=== PATIENT | female | born 1935 | race Caucasian/White ===

== ENCOUNTER 2018-12-07 22:55 | Inpatient (IN) | payer OTHER, BC ==
[~2018-12-07] VITALS: Ht 157.5 cm; Wt 56.8 kg
--- NOTE | 2018-12-07 22:55 | NUR ---
PT BIBA FOR PTS DYALISIS PORT WAS BLEEDING. PT HAS A PORT THAT IS LOCATED ON PTS RIGHT SIDE OF NECK THAT BEGAN TO BLEED EARLIER THIS EVENING. PT CANNOT RECOLLECT WHAT HAPPENED OR WHY THE PORT BEGAN TO BLEED. PER [facility] MANAGER STONE ON SCENE PT WAS FOUND IN HER BEDROOM CONFUSED AND NOT FULLY DRESSED. PER MEDIC THERE WAS APPROX 200CC OF BLOOD ON PTS BED WELL AN ADDITIONAL BLOOD FOUND IN PTS BATHROOM AND BATHTUB. PER MEDIC THEY APPROXIMATE THE TOTAL LOSS OF BLOOD WAS AROUND 500CC. PT WAS ALERT AND RESPONSIVE WHEN PARAMEDICS WERE AT HER HOME. PER MEDIC GCS WAS AT A 14. PER MANAGER STONE WHILE EN ROUTE TO ER THE PT BECAME UNRESPONSIVE WITH A GCS OF 3. PT WAS PLACED ON OXYGEN WITH HIGH FLOW. PER MEDIC PT WOULD NOT RESPOND TO VERBAL OR PAINFUL STIMULI. DR MACEDO NOW AT BEDSIDE
[2018-12-07 22:57] VITALS: Ht 157.5 cm; Wt 56.8 kg
--- NOTE | 2018-12-07 23:00 | NUR ---
DR MACEDO AT BEDSIDE AND SPEAKING WITH PT. PT IS ABLE TO ANSWER QUESTIONS APPROPRIATELY. PT STS " I DONT REMEMBER" WHEN ASKED WHAT HAPPENED TONIGHT. PT PT PLACED ON CM. PER PT LAST DIALYSIS TREATMENT WAS EARLIER THIS AFTERNOON
--- NOTE | 2018-12-07 23:14 | NUR ---
GIOVANNA RN AT BEDSIDE TO CLEAN PT. PT IS SPEAKING IN FULL SENTENCES WITH SPEACH CLEAR. PT IS ABLE TO FOLLOW COMMANDS. PT DENIES ANY PAIN AT THIS TIME.
[2018-12-07 23:22] LABS: BASOPHIL % 0.6 % (0-2); PLATELET COUNT 162 x10^3mcL (130-400)
[2018-12-07 23:23] LABS: RED CELL DISTRIBUTION WIDTH 17.6 % (11.5-14.5)
--- NOTE | 2018-12-07 23:46 | NUR ---
PT AT BEDSIDE AT THIS TIME, PT STATES THAT PT HAD GONE TO BED THIS EVENING AND HE WAS UP WATCHING TV WHEN SHE CALLED HIM INTO THE BATHROOM TO HELP HER. PT STATES "SHE PULLED THE DRESSING OFF AND PULLED THE TUBE OUT, I DON'T KNOW WHY SHE DID THAT". PT CALLED 911 SHORTLY AFTER. PT ABLE TO RECALL ALL EVENTS OF THE EVENING EXCEPT FOR WHY SHE WAS BLEEDING FROM HER PORT.
[2018-12-07 23:47] LABS: ALKALINE PHOSPHATASE 91 U/L (46-116); ALT/SGPT 12 U/L (14-59); AST/SGOT 13 U/L (15-37); BILIRUBIN TOTAL 0.3 mg/dL (0.20-1.00); CALCIUM 8.7 mg/dL (8.5-10.1); CHLORIDE SERUM 104 mmol/L (98-107); CREATININE SERUM 3.7 mg/dL (0.6-1.0); GLUCOSE SERUM 149 mg/dL (74-106); SODIUM SERUM 140 mmol/L (136-145)
[2018-12-07 23:50] LABS: ALBUMIN 2.6 g/dL (3.4-5.0); TOTAL PROTEIN, SERUM 5.5 g/dL (6.4-8.2)
[2018-12-07 23:51] LABS: POTASSIUM SERUM 2.5 mmol/L (3.5-5.1)
--- NOTE | 2018-12-08 00:01 | NUR ---
PT CALLED ME INTO THE ROOM TO TELL ME THAT HER IV HAD BEEN PULLED OUT. IV TO R HAND REVOVED AT THIS TIME BLEEDING CONTROLLED.
--- NOTE | 2018-12-08 00:18 | NUR ---
PT REPORT CALLED TO PATRICIA RETANA TO ASSUME PT CARE.
--- NOTE | 2018-12-08 00:56 | NUR ---
PT TRANSFERRED TO 251B BY RUTHY BY PIERRE CARBAJAL AND LIBORIO RN. PT ON FULL CM FOR TRANSFER. PT AOX4, RESP EVEN AND UNLABORED, NO ACUTE DISTRESS NOTED. PT ACCEPTED BY PATRICIA RETANA TO ASSUME PT CARE.
--- NOTE | 2018-12-08 00:59 | NUR ---
PT WAS RECEIVED BY PRIMARY NURSE ERNESTO FROM ED. PT IS AAOX2, ABLE TO FOLLOW SIMPLE COMMANDS. SPEECH IS CLEAR. NO SOB NOTED, LUNG SOUNDS DIMINISHED ON THE BASES. DENIES CHEST PAIN/PRESSURE. DENIES ABDOMINAL DISCOMFORT. BOWEL SOUNDS ACTIVE. NOTED ERYTHEMA AND SUTURED AREA ON THE LUE, COVERED W/ NON-ADHERENT DRESSING AND TEGADERM. W/ RIGHT HAND ECCHYMOSIS, PC TECH. W/ RIGHT UPPER CHEST PORT CLAMPED W/ A RENE CLAMP, MIREYA-WOUND IS CLEANSED W/ A BETADINE AND COVERED W/ TRANSPARENT DRESSING. OLD IV SITE ON THE LFA REMOVED, NEW IV INSERTED ON THE RIGHT HAND GAUGE 22. SIDE RAILS UPX2. CALL LIGHT ON REACH. HOB ELEVATED AT 30 DEG. PRIMARY NURSE ERNESTO AT BEDSIDE FOR CONTINUITY OF CARE
--- NOTE | 2018-12-08 01:00 | NUR ---
RECIEVED PT FROM MAZIN AGOSTO. PT AOX2, CONFUSED/FORGETFUL AT TIMES. ON TELE #6, NSR. DENIES CP/PRESSURE. DENIES SOB/DIFFICULTY BREATHING, ON 2L NC. SHUNT NOTED TO LAC, BRUIT AND THRILL FELT. R. CHEST CATH CUT/CLAMPED. NEW IV TO R. HAND, INTACT AND PATENT. BED IN LOWEST POSITION. CALL LIGHT WITHIN REACH. WILL CONTINUE TO MONITOR.
[2018-12-08 01:23] VITALS: BP 121/90
[2018-12-08 02:16] LABS: MAGNESIUM 1.8 mg/dL (1.8-2.4); PHOSPHOROUS 5.5 mg/dL (2.5-4.9)
[2018-12-08 02:17] LABS: CHOLESTEROL/HDL RATIO 2.9
[2018-12-08 02:25] LABS: T3 TOTAL 0.64 ng/mL
[2018-12-08 02:27] LABS: FREE T4 0.6 ng/dL (0.76-1.46)
[2018-12-08 02:31] LABS: FREE THYROXINE INDEX 1.4 ug/dL (1.4-4.5)
[2018-12-08 05:20] VITALS: BP 123/26
[2018-12-08 05:20] LABS: BASOPHIL % 0.2 % (0-2); PLATELET COUNT 159 x10^3mcL (130-400)
[2018-12-08 05:24] LABS: RED CELL DISTRIBUTION WIDTH 16.9 % (11.5-14.5)
[2018-12-08 05:28] LABS: CALCIUM 9.5 mg/dL (8.5-10.1); CARBON DIOXIDE 21.5 mmol/L (21-32); CHLORIDE SERUM 105 mmol/L (98-107); GLUCOSE SERUM 115 mg/dL (74-106); MAGNESIUM 2.1 mg/dL (1.8-2.4); PHOSPHOROUS 6.6 mg/dL (2.5-4.9); POTASSIUM SERUM 4.1 mmol/L (3.5-5.1); SODIUM SERUM 140 mmol/L (136-145)
--- NOTE | 2018-12-08 05:30 | NUR ---
PT WBC 13.8, H/H 8.4. DR. SAMUEL NOTIFIED.
[2018-12-08 05:32] LABS: CREATININE SERUM 4.2 mg/dL (0.6-1.0)
--- NOTE | 2018-12-08 05:37 | NUR ---
CREAT 4.2, DR. SAMUEL NOTIFIED.
--- NOTE | 2018-12-08 05:42 | NUR ---
IV TO R. HAND LEAKING, REMOVED WITH TIP INTACT. NEW IV PLACED TO RFA, INTACT AND PATENT.
[2018-12-08 05:57] VITALS: BP 129/67
--- NOTE | 2018-12-08 07:45 | NUR ---
RECEIVED ORDER TO OBTAIN CONSENT FOR PERMACATH INSERTION. PATIENT SLEEPING BUT ARROUSABLE, ALERT AND ORIENTED TO SELF. (PLACE-"[facility]", YEAR-"1988", SITUATION-"I DONT KNOW WHAT HAPPENED TO ME") REORIENTING NEEDED. CALLED AND VOICE MESSAGE LEFT. PATIENT DENIES DIZZINESS OR HEADACHE. EQUAL CARE TRANSITION MGR STRENGTH, PERRLA NOTED, SPEECH CLEAR. DENIES CHEST PAIN. TELE 6, READING SR 75. LUNGS DIMINISHED, 2L NC IN PLACE O2 SAT 97%, TITRATED DOWN TO 1L WILL CONT TO MONITOR AND WEEN TOLERATED, PATIENT STATES DOES NOT USE HOME O2. NO RESP DISTRESS NOTED, BREATHING E/U. CALMPED CATH NOTED TO RT UPPER CHEST, TEGADERM/DRESSINGS INTACT. PATIENT REPORTS ITCHING, INFORMED HER TO TRY AND NOT TOUCH THE SITE, KEEP CLEAN, DRY PERIPHERAL PULSES PALPABLE, TRACE EDEMA TO LEFT ARM W/ HEMATOMA/BRUISING MARKED. AV FISTULA TO LT ARM WRAPPED WITH KERLIX, NO ACTIVE BLEEDING, SMALL SCRATCH/ABRASIAN BARRIGA NOTED, BRUIT AND THRILL NOTED, SUTURES IN PLACE. BOWEL SOUNDS ACTIVE, DENIES N/V. IV SITE TO RFA, SITE WNL. CALL LIGHT WITHIN REACH, SITTER AT BEDSIDE. WILL CONT TO MONITOR.
--- NOTE | 2018-12-08 08:35 | NUR ---
RECEIVED CALL BACK FROM MR PATTERSON, INFORMED HIM OF PROCEDURE. WILL COME BY IN 30 MINUTES.
[2018-12-08 09:38] VITALS: BP 11/39; BP 110/39
--- NOTE | 2018-12-08 09:41 | NUR ---
INCREASED SWELLING TO LEFT FORARM AND BRUISING/HEMATOMA SPREADING NOTED. NO ACTIVE BLEEDING TO FISTULA SITE ON LEFT ARM, BRUIT/THRILL PRESENT. CAP REFILL <3 SEC, FINGERS MOBILE, SENSATION INTACT AND DENIES NUMBNESS BUT PER PATIENT "HAND FEELS TOBI FUNNY". DR DEMETRIS RAMIRES.
--- NOTE | 2018-12-08 10:08 | NUR ---
AT BEDSIDE. DR WILLSON AT BEDSIDE. INFORMED HER OF LEFT ARM STATUS, WILL ORDER ULTRASOUND. ALSO MADE HER AWARE THAT PER PHARMACY, NEW ORDERED VANCO WAS DC'D AND REORDERED AND PHARMACIST TRYING TO REACH HER TO CLARIFY ORDER.
--- NOTE | 2018-12-08 10:11 | NUR ---
ECHOCARDIOGRAM PENDING-NURSE WITH PATIENT
--- NOTE | 2018-12-08 11:50 | NUR ---
PATIENT GOING TO OR FOR PERMACATH INSERTION. DAUGHTER MIGDALIA AT BEDSIDE SIGNED CONSENT, CHARTED. PREOP CHECKLIST DONE, KETAN WIPES GIVEN. PATIENT WITH NO ACUTE DISTRESS AT THIS TIME.
--- NOTE | 2018-12-08 11:56 | NUR ---
ECHOCARDIOGRAM PENDING-NOT IN ROOM
--- NOTE | 2018-12-08 14:24 | NUR ---
PATIENT BACK FROM PROCEDURE. PERMACATH IN PLACE TO RT UPPER CHEST, DRESSINGS MILDLY SOILED, PATIENT ALERT AND ORIENTED X2. DAUGHTER AT BEDSIDE. PATIENT REQUESTING TO USE RESTROOM, YELLOW SOCKS IN PACE, WALKER RETRIEVED AND USING. REQUESTING FOR FOOD, WILL NOTIFY
[2018-12-08] MEDS ORDERED: SODIUM BICARBO650 MG PO (15:13)
[2018-12-08] MEDS ORDERED: HYDRALAZINE HCL25 MG PO (15:15)
[2018-12-08] MEDS ORDERED: OPTIMUM VITAMI100 MG PO (15:17)
[2018-12-08] MEDS ORDERED: NATURE'S BLEND F1 MG PO (15:22)
[2018-12-08] MEDS ORDERED: ALLOPURINOL100 MG PO (15:22)
[2018-12-08] MEDS ORDERED: LASIX40 MG PO (15:23)
[2018-12-08] MEDS ORDERED: CARDIZEM CD240 MG PO (15:23)
[2018-12-08 16:58] VITALS: BP 121/55
--- NOTE | 2018-12-08 18:20 | NUR ---
TELEPHONE CONSENT RECEIVED FROM MIGDALIA WINN FOR HEMODIALYSIS TOMORROW AM, VERIFIED BY SECONDARY RN RONAK. CONSENT CHARTED. PATIENT WITH NO ACUTE DISTRESS AND DENIES PAIN . DRESSING TO PERMACATH LIGHTLY REINFORCED WITH TAPE, REMINDED PATIENT NOT TO TOUCH PERMACATH, VERBALIZD UNDERSTANDING. SITTER AT BEDSIDE.
--- NOTE | 2018-12-08 19:40 | NUR ---
REC'D PT FROM DAY NURSE. PT RESTING IN BED. AAOX3. SPEECH CLEAR, FOLLOWS COMMANDS. MED SURG, NO TELE. DENIES RESP DISTRESS OR SOB. BREATHING EVEN/UNLABORED ON RA. NO EDEMA NOTED. R UPPER CHEST PERMACATH IN PLACE. BIOPATCH SOILED, WILL CHANGE. ECCHYMOSIS TO R UPPER CHEST AND BUE. REPORTS MILD ITCHINESS TO R UPPER CHEST BUT TOLERABLE. ABD SOFT/ROUND/NONTENDER. DENIES ABD PAIN OR N/V. VOIDING FREELY. AMB WITH WALKER AT BEDSIDE. IV TO RFA FLUSHED AND PATENT. SITE WNL. CALL LIGHT WITHIN REACH, BED AT LOWEST POSITION. WILL CONTINUE TO MONITOR.
--- NOTE | 2018-12-08 19:48 | NUR ---
PT REQUESTING SLEEP AID. DR. MCNAIR MADE AWARE VIA [employer].
--- NOTE | 2018-12-08 21:39 | NUR ---
R UPPER CHEST CATH BIOPATCH SATURATED WITH BLOOD. DRESSING CHANGED USING STERILE TECHNIQUE. TRAZADONE GIVEN SLEEP AID. NO COMPLAINTS AT THIS TIME. WILL CONTINUE TO MONITOR.
--- NOTE | 2018-12-08 22:01 | NUR ---
PT C/O DRY COUGH AND REQUESTING MEDICATION. DR. MCNAIR MADE AWARE VIA PAGE[employer].
[2018-12-08 22:18] VITALS: BP 133/58
--- NOTE | 2018-12-08 22:50 | NUR ---
PT MOVED TO BED A D/T PENDING NEW ADMISSION. BENZANOTATE GIVEN FOR DRY COUGH. NO OTHER COMPLAINTS AT THIS TIME. WILL CONTINUE TO MONITOR.
[2018-12-08 23:52] LABS: microscopic required? YES; urine erythrocyte 1+ (NEGATIVE)
[2018-12-09 00:16] LABS: AMPHETAMINE QUAL UR NONE DETECTED (See below)
--- NOTE | 2018-12-09 00:24 | NUR ---
PT RESTING IN BED WITH EYES CLOSED. NO S/SX OF PAIN OR DISTRESS NOTED. BREATHING EVEN/UNLABORED ON RA. CALL LIGHT WITHIN REACH, BED AT LOWEST POSITION. WILL CONTINUE TO MONITOR.
--- NOTE | 2018-12-09 01:47 | NUR ---
PT AWAKE AND RESTING IN BED. REPORTS BEING UNABLE TO SLEEP AND REQUESTING ADDITIONAL SLEEP AID. DR. MCNAIR MADE AWARE VIA [employer].
--- NOTE | 2018-12-09 02:41 | NUR ---
BENADRYL GIVEN A SLEEP AID. PT NOW C/O BLE DISCOMFORT. REPORTS HAVING RESTLESS LEG SYNDROME AND TAKES A MEDICATION STARTING WITH AN "M" FOR IT BUT UNABLE TO REMEMBER AT THIS TIME. NO MEDS IN MED REC INDICATIVE FOR RLS. TYLENOL GIVEN FOR DISCOMFORT. WILL MONITOR FOR RELIEF.
--- NOTE | 2018-12-09 04:14 | NUR ---
PT ASLEEP. NO SIGNS OF DISTRESS OR PAIN NOTED. WILL CONTINUE TO MONITOR.
--- NOTE | 2018-12-09 05:22 | NUR ---
PT STILL SLEEPING. BREATHING EVEN/UNLABORED ON RA. NO S/SX OF PAIN NOTED. NO SIGNIFICANT CHANGES DURING SHIFT. PLAN FOR HD TODAY. WILL ENDORSE TO DAY NURSE.
--- NOTE | 2018-12-09 06:15 | NUR ---
SPO2 89-91% ON RA WHILE SLEEPING. NO DISTRESS NOTED. 2L NC APPLIED, SPO2 UP TO 98%.
[2018-12-09 06:25] VITALS: BP 127/40
[2018-12-09 07:02] LABS: BASOPHIL % 0.1 % (0-2); PLATELET COUNT 141 x10^3mcL (130-400)
[2018-12-09 07:18] LABS: RED CELL DISTRIBUTION WIDTH 17.7 % (11.5-14.5)
--- NOTE | 2018-12-09 07:20 | NUR ---
RECEIVED REPORT FROM [facility] NURSE, PATIENT SITTING UP ON BED A/OX3, ABLE TO MAKE NEEDS KNOWN AND FOLLOW COMMANDS. DENIES HEADACHE/DIZZINESS, DENIES FEELING SOB, LUNGS SOMEWHAT DIM TO BASES OTHERWISE CTA. BREATHING E/U. NO SIGN OF CP. PERIPHERAL PUSLES PLAPLBLE, MILD TRACE NONPITTING EDEMA TO LEFT ARM. AV SHUNT TO LEFT ARM W/ STITCHES, BRUIT/THRILL NOTED. RT UPPER CHEST DIALYSIS CATH W/ DRESSINGS CDI. BRUISING TO BUE'S, RETAIL CONSULTANT. DENIES PAIN OR DISCOMFORT. BOWEL SOUNDS ACTIVE, DENIES N/V. IV ACCESS TO RFA SITE WNL. PATIENT ASKING IF SHE WILL GO HOME TODAY. INFORMED HER OF PLAN TO DIALYZE HER THIS MORNING AND WILL WAIT FOR DOCTORS TO MAKE ROUNDS. PATIENT COOPERATIVE WITH PLAN OF CARE. CALL LIGHT WITHIN REACH, SITTER AT BEDSIDE.
[2018-12-09 07:26] LABS: CALCIUM 9.8 mg/dL (8.5-10.1); CARBON DIOXIDE 20.6 mmol/L (21-32); CHLORIDE SERUM 104 mmol/L (98-107); GLUCOSE SERUM 89 mg/dL (74-106); MAGNESIUM 2.3 mg/dL (1.8-2.4); PHOSPHOROUS 7.4 mg/dL (2.5-4.9); POTASSIUM SERUM 3.8 mmol/L (3.5-5.1); SODIUM SERUM 138 mmol/L (136-145)
[2018-12-09 07:49] LABS: CREATININE SERUM 5.8 mg/dL (0.6-1.0)
[2018-12-09 08:52] VITALS: BP 115/50
--- NOTE | 2018-12-09 11:51 | NUR ---
HEMODIALYSIS INITIATING. AARON AT BEDSIDE, REQUESTING TO HAVE XRAY DONE ON PATIENT'S LEFT KNEE IT HAS BEEN BOTHERING HER AND MILD SWELLING NOTED. PER DAUGHTER AND PATIENT, SHE FELL LAST WEEK. ECG TECHNICIAN EARLE MADE AWARE AND ORDER PLACED FOR XRAY.
--- NOTE | 2018-12-09 15:01 | NUR ---
HEMODIALYSIS COMPLETE, 2L OUT. PATIENT C/O PERSISTENT DRY COUGH. PRN TESSALON GIVEN. DENIES ANY PAIN, DIZZINESS, OR NAUSEA. TOLERATED DIALYSIS WELL, WILL CONT TO MONITOR. CALL LIGHT WITHIN REACH, SITTER AT BEDSIDE.
[2018-12-09 19:08] VITALS: BP 112/44
--- NOTE | 2018-12-09 19:30 | NUR ---
PT IS A/O X4. FORGETFUL AT TIMES. MED SURG. DENIES ANY CHEST PAIN OR PRESSURE. PULSES ARE PRESENT. EDEMA NOTED LUE. LFA AV SHUNT, THRILL AND BRIUT PRESENT. LUNGS CLEAR IN ALL FEILDS. ON RA, MARINA ANY SOB. EQUAL CHEST RISE AND FALL. HAS NON PRODUCTIVE COUGH. BOWEL SOUNDS PRESENT x4. DENIES ANY ABD PAIN OR DISTRESS. MILD WEAKNESS. WALKER AT BEDSIDE. RIJ PERMACATH INTACT. SALINE LOCKED ON RFA, INTACT AND PATENT. DARK, PURPLE DISCOLORATION NOTED ON BUE, R UPPER CHEST. SKIN WARM AND INTACT. DENIES PAIN AT THIS TIME. BED IS AT LOWEST SETTING. CALL LIGHT WITHIN REACH. WILL CONTINUE TO MONTIOR.
--- NOTE | 2018-12-10 00:05 | NUR ---
PT C/O NON PRODUCTIVE COUGH. PRN MEDICATION GIVEN. SEE EMAR. NO OTHER COMPLAINTS. PT IS RESTING IN BED. PERMACATH CLEAN AND INTACT. BED IS AT LOWEST SETTING. CALL LIGHT WITHIN REACH. WILL CONTINUE TO MONITOR.
[2018-12-10 06:21] LABS: BASOPHIL % 0.4 % (0-2); PLATELET COUNT 151 x10^3mcL (130-400)
[2018-12-10 06:29] VITALS: BP 129/47
--- NOTE | 2018-12-10 06:43 | NUR ---
PT IS RESTING IN BED WITH BOTH EYES CLOSED. BREATHING EVEN AND UNALBORED. NO SIGN OF DISTRESS NOTED. SITTER AT BEDSIDE ALL NIGHT. R PERMACATH INTACT. IV INTACT. BED IS AT LOWEST SETTING. CALL LIGHT WITHIN REACH. WILL ENDORSE TO AM NURSE.
--- NOTE | 2018-12-10 07:20 | NUR ---
RECEIVED BEDSIDE REPORT FROM DEVELOPMENTAL ELECTRONICS ASSEMBLER NURSE AT THIS TIME. PATIENT RESTING COMFORTABLY IN BED. NO APPARENT DISTRESS OR DISCOMFORT NOTED. BREATHING EVEN AND UNLABORED. NO RESPIRATORY DISTRESS OR DISCOMFORT NOTED. PATIENT DENIES CHEST PAIN/PRESSURE AT THIS TIME RIJ PERMACATH IN PLACE DRESSING CDI. AV SHUNT TO LFA WITH BRUIT AND THRILL. IV PATENT AND INTACT. ALL QUESTIONS AND CONCERNS ADDRESSED. ALL NEEDS ATTENDED TO. SITTER AT BEDSIDE TO PROMOTE PATIENT SAFETY. WILL CONTINUE TO MONITOR
[2018-12-10 07:34] LABS: RED CELL DISTRIBUTION WIDTH 17.2 % (11.5-14.5)
[2018-12-10 07:37] LABS: rbc morphology (normal/abnorm) ABNORMAL (NORMAL)
--- NOTE | 2018-12-10 07:37 | NUR ---
REPORTED TO EDGAR OG AT THIS TIME PATIENT H/H 6.8/ AT THIS TIME. NO ACTIVE SIGNS OF BLEEDING AT THIS TIME. ALL NEEDS ATTENDED TO. WILL CONTINUE TO MONITOR
[2018-12-10 08:50] VITALS: BP 119/54
[2018-12-10 09:18] LABS: CALCIUM 9.4 mg/dL (8.5-10.1); CARBON DIOXIDE 27.8 mmol/L (21-32); CHLORIDE SERUM 101 mmol/L (98-107); GLUCOSE SERUM 98 mg/dL (74-106); POTASSIUM SERUM 3.7 mmol/L (3.5-5.1); SODIUM SERUM 138 mmol/L (136-145)
--- NOTE | 2018-12-10 10:20 | NUR ---
MORNING MEDICATIONS ADMINISTERED. PATIENT TOLERATED MEDICATIONS WELL. NO ADVERSE EFFECTS NOTED. ALL NEEDS ATTENDED TO. WILL CONTINUE TO MONITOR
--- NOTE | 2018-12-10 10:37 | NUR ---
PATIENT AMBULATING HALLWAYS AT THIS TIME. PATIENT TOLERATING ACTIVITY WELL. NO APPARENT DISTRESS OR DISCOMFORT NOTED. ALL NEEDS ATTENDED TO. WILL CONTINUE TO MONITOR
[2018-12-10 11:03] LABS: BASOPHIL % 1.3 % (0-2); PLATELET COUNT 176 x10^3mcL (130-400)
--- NOTE | 2018-12-10 11:35 | NUR ---
Intervention/RDN Recommendation(s): 1. Continue on renal diet as tolerated.
--- NOTE | 2018-12-10 11:35 | NUR ---
Initial Nutrition Assessment- Dx: blood loss PMHx: HTN, general anxiety, depression, ESRD on HD. PSHx: AV fistula for dialysis (12/03/18) Labs: (12/10) Na 138, K 3.7, Glu 98, BUN 22, Cr 4, A1c 4.9, H/H 7.4/23. Meds: ambien, aspirin, Colace, folic acid, Lipitor, phoslo, potassium chloride, sodium chloride, Tylenol, vancomycin, vit B1, zofran Diet: renal PO Intakes: (12/09) D: 50%, L: 30%, B: 60%; overall av% Ht: 157.48 cm/62 inches/5'2" Wt: 56.841 kg/125 pounds BMI: 22.9 kg/m2, normal for age IBW: 110 pounds/50 kg %IBW: 113% UBW: 110-120 pounds Age: 83 Food Allergies: No Known Food Allergies Skin: Skin intact, Dark purple discoloration noted on BUE and rt upper chest. Huey: 20 Edema: None GI: Last BM 12/09/18 Pt admitted with dx: acute blood loss anemia with source of bleed from damaged dialysis permacath, AMS with acute toxic encephalopathy 2/2 lorazepam intake, ESRD on HD, tachycardia 2/2 acute blood loss anemia, hypokalemia, elevated BNP, moderate malnutrition, DVT prophylaxis. Per nephrology consult note, Pt had HD on 12/09/18. Pt currently on PhosLo. Hypokalemia resolved after replacement. RDN visited with PtENRIQUETA at bedside. Pt reports feeling fairly well, had just started on HD and is adjusting to renal diet fairly well. She was able to report renal diet with accuracy, noting that she knows that she should not consume dairy products, cheese, avocadoes, and tomatoes. She goes to dialysis three times a week at [facility]. She declined further education and nutrition handouts from RDN at this time because she feels that she gets adequate dietary education from dialysis center. Pt informed that if she has any questions regarding the renal diet or nutrition, she may request to speak with RDN. Pt verbalizes understanding of the renal diet and reason for her being prescribed that diet. Problem with: N: no V: no D: no C: no Problems with: Chewing: no Swallowing: no Current appetite: fair, eats a little bit at a time. Recent wt changes: None Vitamin/Supplement: None Special Diet at Home: Renal Physical activity: physical therapy started one week ago. She used to go to the gym 3x/week but since starting HD, she has become too tired to go to the gym. Nutrition education given (specify specific nutrition education and handout given): N/A Food-drug interactions? N/A Education given? N/A Estimated Nutritional Needs Based on ideal body weight of 50 kg. Energy: 9230-1910 kcal/d (30-35 kcal/kg for ESRD on HD) Protein: 60-75 gm/d (1.2-1.5 gm/kg for ESRD on HD) Fluid: 7613-1316 mL/d (1 mL/kcal) or per MD. Nutrition Diagnosis 1. Impaired nutrient utilization related to renal dysfunction as evidenced by dx ESRD on HD. Intervention/RDN Recommendation(s): 1. Continue on renal diet as tolerated. Monitor/Evaluate Goal: Intake via PO intakes to meet at least 75% of estimated needs with acceptable tolerance within 3-5 days. Monitor: PO intakes and/or nutrition support tolerance, Labs, GI function, Skin integrity, Weights. F/U in 3-5 days as moderate risk (12/13-)
--- NOTE | 2018-12-10 12:58 | NUR ---
PATIENT SITTING UP IN ON SIDE OF BED EATING LUNCH AT THIS TIME. PATIENT TOLERTATING DIET WELL. NO APPARENT DISTRESS OR DISCOMFORT NOTED. ALL NEEDS ATTENDED TO. WILL CONTINUE TO MONITOR
--- NOTE | 2018-12-10 16:18 | NUR ---
TRANSFERRED PATIENT TO ROOM 217A AT THIS TIME. REPORT GIVEN TO CEDRIC RETANA. ALL QUESTIONS AND CONCERNS ADDRESSED. ALL NEEDS ATTENDED TO. ALL CARE ENDORSED.
--- NOTE | 2018-12-10 16:25 | NUR ---
RECEIVED PT FROM NURSE SHAHID. PT BROUGHT BY WHEELCHAIR TO ROOM 217A AND SHE AMBULATED TO BED. STABLE. DENIES ANY PAIN. V/S STABLE. SITTER AT BEDSIDE FOR MONITERING THE PT FOR ATTEMPTING TO PULL LINES. PT IS A/O X3 WITH VERY FORGETFUL. SAFTEY PRECAUTIONS ARE IN PLACE. WILL MONITOR.
[2018-12-10 17:39] VITALS: BP 113/53
--- NOTE | 2018-12-10 17:53 | NUR ---
PT C/O DRY COUGH OCCASIONALLY. TESSALON PERLES PO GIVEN ORDERED. STABLE.
--- NOTE | 2018-12-10 19:20 | NUR ---
PT RESTING IN BED COMFORTABLY. DENIES ANY PAIN. SITTER AT BEDSIDE. GAVE REPORT TO SHEET METAL WORKER HELPER NURSE.
--- NOTE | 2018-12-10 19:40 | NUR ---
RECEIVED FROM RESTING IN BED, NO ACUTE DISTRESS NOTED. PT WITH SITTER AT BEDSIDE. PT AOX3, DENIES WILSON/DIZZINESS. MEDSURG PT, DENIES CP. HD PT (MWF); LAST HD W/ 2L OUT. PT WITH PERMACATH TO RT UPPPER CHEST USED FOR HD, LARGE ECCHYMOSIS NOTED TO RT UPPER CHEST. PT HX INVOLVES PULLING OUT OLD PERMACATH D/T IT WAS ITCHING HER. PT REPORTING SHE DID THIS DURING HER SLEEP AND SHE REPORTS WAKING UP IN A POOL OF BLOOD. PT HAS LFA AV SHUNT (NOT BEING USED AT THIS TIME). PT USES WALKER (AT BEDSIDE). PT WITH BUE ECCHYMOSIS (CLOSED). DENIES PAIN AT THIS TIME. IV TO THE RFA PATENT, NO REDNESS, SWELLING OR PAIN NOTED. ALL COMFORT AND SAFETY MEASURES PROVIDED FOR, CALL LIGHT WITHIN REACH, BED IN LOWEST POSITION, WILL CONTINUE TO MONITOR.
[2018-12-10 19:54] VITALS: BP 119/53
--- NOTE | 2018-12-10 23:07 | NUR ---
UPON ROUTINE ASSESSMENT, PT SLEEPING WITH EYES CLOSED, SITTER REMAINING AT BEDSIDE. WILL CONTINUE TO MONITOR. CALL LIGHT WITHIN REACH, BED IN LOWEST POSITION, WILL CONTINUE TO MONITOR.
--- NOTE | 2018-12-11 05:20 | NUR ---
PT RESTED IN INTERVALS DURING SHIFT, NO ACUTE CHANGES OCCURRING OVERNIGHT. PT ONLY MEDICATED WITH TRAZADONE FOR INSOMNIA. PT RESTED WELL WITH THIS MEDICATION. IV SITE REMAINS PATENT TO RFA, SALINE LOCKED. PT CALM AND COOPERATIVE, NOT DEMONSTRATING IMPULSIVE MOVEMENTS SUCH PULLING ON PERMACATH. PT REMAINS AOX3, DENIES WILSON/DIZZINESS. CALL LIGHT WITHIN REACH, BED IN LOWEST POSITION, SITTER REMAINING AT BEDSIDE. WILL CONTINUE TO MONITOR.
[2018-12-11 06:20] LABS: BASOPHIL % 0.4 % (0-2); PLATELET COUNT 161 x10^3mcL (130-400)
[2018-12-11 06:27] VITALS: BP 114/55
[2018-12-11 07:05] LABS: RED CELL DISTRIBUTION WIDTH 17.3 % (11.5-14.5)
--- NOTE | 2018-12-11 07:50 | NUR ---
RECEIVED BED SIDE REPORT FROM NIGHT NURSE. PATIENT SITTING UP IN BED AT THIS TIME EATING BREAKFAST. A/OX4 ON ROOM AIR, WITH NO COMPLAINTS. PATIENT REPORTS GENERALIZED WEAKNESS BUT IS ABLE TO AMBULATE WITH WALKER. NIGHT NURSE RECEIVED CRITICAL VALUE OF HGB 6.6 HCT 20. JAIME RETANA STATED SHE REPORTED THIS VALUE TO CLASSIFIED AD TAKER. WILL FOLLOW UP FOR OERDERS. SITTER PRESENT IN ROOM, FALL PRECAUTIONS IN PLACE. WILL CONTINUE TO MONITOR
[2018-12-11 08:43] LABS: rbc morphology (normal/abnorm) ABNORMAL (NORMAL)
[2018-12-11 08:49] VITALS: BP 102/42
[2018-12-11 09:01] LABS: CALCIUM 9.2 mg/dL (8.5-10.1); CARBON DIOXIDE 25.2 mmol/L (21-32); CHLORIDE SERUM 102 mmol/L (98-107); GLUCOSE SERUM 94 mg/dL (74-106); POTASSIUM SERUM 3.8 mmol/L (3.5-5.1); SODIUM SERUM 139 mmol/L (136-145)
--- NOTE | 2018-12-11 09:16 | NUR ---
ADMINSITERED MEDICATION PER JUN. FIRING PIN GAUGER STATED PATIENT BLOOD PRESSURE SLIGHT LOW. PATIENT NOT COMPLAINING OF DIZZINESS AT THIS TIME. EDGAR OG HAS ALREADY SEEN PATIENT AND PUT IN ORDER FOR PRBC TRANSFUSION TO BE DONE WITH DIALYSIS. WILL CLARIFY WHEN DIALYSIS IS ORDERED
[2018-12-11 09:23] LABS: CREATININE SERUM 5.9 mg/dL (0.6-1.0)
--- NOTE | 2018-12-11 09:41 | NUR ---
RECEIVED CRITCAL LAB VALUE TO CREATINE 5.9 REPORTED TO EARLE HERNÁNDEZ/ NO NEW ORDERS PATIENT ALREADY ON DIALYSIS
--- NOTE | 2018-12-11 09:52 | NUR ---
PATIENT WAS HAVING A FIT OF COUGHING. ADMINSITERED MEDIATION PRN FOR COUGH. PATIENT HAD NO OTHER COMPLAINTS AT THIS TIME. LUZ MARINA CONTINUE TO [facility]. SITTER IN ROOM
--- NOTE | 2018-12-11 09:56 | NUR ---
TECH HERE TO PERFORM ECHOCARDIOGRAM.
--- NOTE | 2018-12-11 10:10 | NUR ---
PAGED DR VASQUEZ TO ASK ABOUT DIALYSIS OF PATIENT. PATIENT IS NORMALLY ON T,TH,TUE SCHEDULE BUT THERE IS SOME CONFUSION ABOUT SCHEDULING.
--- NOTE | 2018-12-11 11:01 | NUR ---
DURING ECHO, PATIENT REPORTING INCREASED FEELINGS OF ANXIETY AND MUSCLE SPASMS TO LOWER EXTREMITIES. REASSURED PATIENT OF NEED FOR SCAN AND WILL CONTINUE TO MONITOR. STILL AWAITING RETURN CALL FROM DR VASQUEZ FOR DIALYSIS CLARIFICATION
--- NOTE | 2018-12-11 11:39 | NUR ---
UPDATED PATIENT FAMILY ON PAIENT CONDITION. AWAITING CONSULT BY DR CALERO TO CLEAR PATIENT. PATIENT STABLE AND RESTING A TTHIS TIME. FAMILY AT BEDSIDE, ENCOURAGED FAMILY TO CALL AND SPEAK WITH CASE MANAGEMENT FOR PLACEMENT STATUS
--- NOTE | 2018-12-11 11:42 | NUR ---
ADMINSITERED ATIVAN FOR PATIENT ANXIETY PER ORDER. LICENSED APPRAISER STATED PATIENT EF WAS VERY LOW AND THAT SHE WOULD RECOMMEND A BUBBLE STUDY, INSTRUCTED TECH TO INFORM CHARGE NURSE OF RECOMENDATIONS
[2018-12-11 12:55] VITALS: BP 121/56
--- NOTE | 2018-12-11 12:59 | NUR ---
BEGINING OF BLOOD TRANSFUSION, PRBC. PAT VITALS STABLE BEFORE TRANSFUSION. EDUCATED PATIENT ABOUT ADVERSE REACTIONS TO BLOOD TANSFUSION. VERIFIED CONCENT SIGNED. BLOOD PRODUCT VERIFIED BY JED RETANA. WILL REMAIN IN ROOM WITH PATIENT FOR FIRST 15 MINUTES OF TRANSFUSION
--- NOTE | 2018-12-11 13:28 | NUR ---
AFTER 15 MINUTES OF TRANSFUSION PATIENT VSS, NO SIGNS OF TRANSFUSION REACTION. CALL IGHT WITHIN REACH OF PATIENT, SITTER IN ROOM. WILL CONTINUE TO MONITOR
--- NOTE | 2018-12-11 14:07 | NUR ---
DR VASQUEZ IN TO SEE [facility], CONFIRMED THAT PATIENT WILL BE STAYING OVER NIGHT AND RECEIVED DIALYSIS TOMORROW IN AM BEFORE POSSIBALY BEING DISCHARGE. PATIENT IV LEAKING AT SITE. REMOVED IV AND TRINY RETANA STARTED NEW IV TO RIGHT AC, 22G. FLUSHING WELL, SITE WNL. BLOOD PRODUCTS RESTARTED. INFUSION MUST BE FINISHED BEFORE 1645.
--- NOTE | 2018-12-11 16:51 | NUR ---
END OF TRANSFUSION AT 1640. TOTAL VOLUME INFUSED 300ML. PATIENT SHOWS NO SIGNS OF ADVERSE REACTION. VITAL SIGNS STABLE. FLUSHED IV. WILL CONTINUE TO MONITOR PATIENT
[2018-12-11 17:48] LABS: BASOPHIL % 0.5 % (0-2); PLATELET COUNT 178 x10^3mcL (130-400)
[2018-12-11 17:51] LABS: RED CELL DISTRIBUTION WIDTH 17.6 % (11.5-14.5)
--- NOTE | 2018-12-11 19:10 | NUR ---
PT RECEIVED A/O X4 WITH EPISODES OF FORGETFULNESS. MED-SURG, DENIES ANY CP/PRESSURE. PULSES PALPABLE, TRACE EDEMA TO LUE. BREATHING IS EVEN AND UNLABORED, NO RESP DISTRESS NOTED. ABD SOFT AND NONDISTENDED, DENIES N/V. VOIDS FREELY. PT ON HD ON TuThSaT WITH PERMACATH TO RIGHT UPPER CHEST, AND AV SHUNT TO LFA WITH GOOD BRUIT AND THRIIL. GENERALIZED WEAKNESS. ECCHYMOSIS NOTED TO LUE AND RIGHT UPPER CHEST. PT DENIES HAVING ANY PAIN AT THIS TIME. SL TO RFA, PATENT AND INTACT, SITE WNL. NO ACUTE DISTRESS NOTED. SITTER AT BEDSIDE. CALL LIGHT WITHIN REACH. WILL CONT TO MONITOR.
--- NOTE | 2018-12-11 19:41 | NUR ---
GAVE REPORT TO NIGHT NURSE. UPDATED ON PATIENT CONDITION. ENDORSED NEED TO CALL [facility]O RN FOR HD IN AM. ANSWERED ALL QUESTIONS.
--- NOTE | 2018-12-11 19:59 | NUR ---
ZENOBIA (DIALYSIS NURSE) CALLED AND MADE AWARE THAT PT HAS DIALYSIS ORDERED FOR TOMORROW.
[2018-12-11 21:20] VITALS: BP 123/51
--- NOTE | 2018-12-11 21:43 | NUR ---
PT C/O DIFFICULTY SLEEPING, PRN TRAZODONE GIVEN ORDERED. NO ACUTE DISTRESS NOTED. CALL LIGHT WITHIN REACH. WILL CONT TO MONITOR.
[2018-12-12 05:57] VITALS: BP 108/48
[2018-12-12 06:23] LABS: BASOPHIL % 0.3 % (0-2); PLATELET COUNT 172 x10^3mcL (130-400)
--- NOTE | 2018-12-12 06:23 | NUR ---
PT SLEPT WELL THROUGHOUT THE EVENING. BREATHING IS EVEN AND UNLABORED, NO RESP DISTRESS NOTED. PT DENIES HAVING ANY PAIN AT THIS TIME. RIGHT UPPER PERMACATH IN PLACE; DRSG TO RIGHT UPPER CHEST, CDI. AV SHUNT TO LFA WITH GOOD BRUIT AND THRILL. NO ACUTE CHANGES ENCOUNTERED DURING SHIFT. ALL NEEDS MET AND ANTICIPATED. SL TO RAC, PATENT AND INTACT, SITE WNL. CALL LIGHT WITHIN REACH. SITTER AT BEDSIDE. WILL ENDORSE CARE TO AM NURSE.
[2018-12-12 06:50] LABS: RED CELL DISTRIBUTION WIDTH 17.3 % (11.5-14.5)
[2018-12-12 07:02] LABS: CALCIUM 9.2 mg/dL (8.5-10.1); CARBON DIOXIDE 21.4 mmol/L (21-32); CHLORIDE SERUM 101 mmol/L (98-107); GLUCOSE SERUM 90 mg/dL (74-106); POTASSIUM SERUM 4.1 mmol/L (3.5-5.1); SODIUM SERUM 139 mmol/L (136-145)
[2018-12-12 07:04] LABS: CREATININE SERUM 6.6 mg/dL (0.6-1.0)
--- NOTE | 2018-12-12 07:20 | NUR ---
RECEIVED PT FROM NOC RN. PT FOUND RESTING WITH BOTH EYES CLOSED. DROWSY, EASILY AROUSABLE TO VERBAL STIMULI. AA/OX4. NO S/S OF ACUTE DISTRESS. NO COMPLAINT OF PAIN. NO SOB ON ROOM AIR. NO CHEST PAIN. DRESSING TO RIGHT CHEST CDI. RIGHT UPPER PERMA CATH IN TACT, DRESSING CDI, LARGE PURPLE ECHYMOTIC SPOT NOTED TO RIGHT UPPER CHEST. AV FISTUAL TO LUE, +THRILL/BRUIT. ALEXUS. SITTER AT BEDSIDE. FALL PRECAUTIONS IN PLACE. SIDE RAILS UP X2. NO CHILLS. NO N/V. BED IN LOW POSITION. CALL LIGHT WITHIN REACH. WILL CONTINUE TO MONITOR.
[2018-12-12 09:21] VITALS: BP 105/80
[2018-12-12 11:30] VITALS: BP 126/42
--- NOTE | 2018-12-12 12:55 | NUR ---
PT SITTING UP IN BED EATING LUNCH. NO S/S OF ACUTE DISTRESS. NO COMPLAINT OF PAIN. HD COMPLETED, OUTPUT 2.3L. TOLERATED WELL. NO N/V. NO WILSON. NO DIZZINESS. SOB ON ROOM AIR. NO CHEST PAIN. IV WNL, SALINE LOCKED TO RFA. PATENT. DIALYSIS SHUNT TO RIGHT CHEST WITH DRESSING CDI. PT CALM/COOPERATIVE. BED IN LOW POSITION. CALL LIGHT WITHIN REACH. SITTER AT BEDSIDE. WILL CONTINUE TO MONITOR.
[2018-12-12 13:34] VITALS: BP 105/80
--- NOTE | 2018-12-12 15:05 | NUR ---
PT DISCHARGED TO HOME. AWAKE, ALERT, ORIENTED X4. NO S/S OF ACUTE DISTRESS. DENIES SOB ON ROOM AIR. NO CHEST PAIN. DRESSING TO RIGHT CHEST CDI. RIGHT CHEST PERMA CATH IN PLACE. COVERED BY DRESSING CDI. AV SHUNT TO LUE +THRILL/BRUIT. SEE MAR FOR PICTURES. NO DIZZINESS. NO N/V. VS STABLE. CALM/COOPERATIVE. DISCHARGE EDUCATION PROVIDED TO PATIENT. INSTRUCTED TO FOLLOW UP WITH PCP AT UPCOMING APPT. VERBALIZED UNDERSTANDING. IV REMOVED FROM RFA, NO REDNESS, NO SWELLING, NO INFILTRATION. ECCHYMOTIC SPOTS NOTED TO BUE. VAUGHAN. NO DRAINAGE. CLOSED. TAKEN TO DISCHARGE LOBBY BY ENRIQUETA HEWITT BY WHEELCHAIR. ACCOMPANIED BY ANSHU. BELONGINGS WITH PATIENT.
== END 2018-12-12 15:04 | disposition home or self-care (01) | DRG 314 ==
LOC: ED 22:55 → DU 23:59 → MU 23:59 → DU 12-08 00:58 → MU 12-08 10:56
PROVIDERS: Emergency Medicine; Surgery; ADMIT Internal Medicine
PROC: 02HV33Z Insertion of Infusion Device into Superior Vena Cava, Percutaneous Approach (ICD-10-PCS; 2018-12-08)
PROC: B543ZZA Ultrasonography of Right Jugular Veins, Guidance (ICD-10-PCS; 2018-12-08)
PROC: 05HM33Z Insertion of Infusion Device into Right Internal Jugular Vein, Percutaneous Approach (ICD-10-PCS; principal; 2018-12-08 13:15)
DX: T82.43XA Leakage of vascular dialysis catheter, initial encounter (principal); N18.6 End stage renal disease; G92 Toxic encephalopathy; D62 Acute posthemorrhagic anemia; I12.0 Hypertensive chronic kidney disease with stage 5 chronic kidney disease or end stage renal disease; E44.0 Moderate protein-calorie malnutrition; E87.6 Hypokalemia; E83.39 Other disorders of phosphorus metabolism; F41.1 Generalized anxiety disorder; F32.9 Major depressive disorder, single episode, unspecified; Z99.2 Dependence on renal dialysis; Z68.20 Body mass index [BMI] 20.0-20.9, adult; T42.4X5A Adverse effect of benzodiazepines, initial encounter; Y92.018 Other place in single-family (private) house as the place of occurrence of the external cause
CPT/HCPCS: 82962; 83880; 84439; 97116-GP; A4301; G0378; G0480; J0690; J1200; J1644; J2001; J2060; J2704; J3370; J3480; J3490; J7030; J7040; P9016; Q0092

== ENCOUNTER 2019-12-24 02:49 | Emergency (ER) | payer OTHER, BC ==
[~2019-12-24] VITALS: Ht 152.4 cm; Wt 52.2 kg
[~2019-12-24 02:49] MED LIST: ALLOPURINOL100 MG PO; CARDIZEM CD240 MG PO; HYDRALAZINE HCL25 MG PO; LASIX40 MG PO; NATURE'S BLEND F1 MG PO; OPTIMUM VITAMI100 MG PO; SODIUM BICARBO650 MG PO
[2019-12-24 02:53] VITALS: Ht 152.4 cm; Wt 52.2 kg
[2019-12-24 04:08] LABS: BASOPHIL % 0.1 % (0-2); PLATELET COUNT 142 x10^3mcL (130-400)
[2019-12-24 04:11] LABS: RED CELL DISTRIBUTION WIDTH 17.1 % (11.5-14.5)
[2019-12-24 04:47] LABS: ALBUMIN 3.1 g/dL (3.4-5.0); ALKALINE PHOSPHATASE 129 U/L (46-116); ALT/SGPT 12 U/L (14-59); AST/SGOT 30 U/L (15-37); BILIRUBIN TOTAL 0.69 mg/dL (0.20-1.00); CALCIUM 7.9 mg/dL (8.5-10.1); CARBON DIOXIDE 21.6 mmol/L (21-32); CHLORIDE SERUM 101 mmol/L (98-107); GLUCOSE SERUM 111 mg/dL (74-106); SODIUM SERUM 137 mmol/L (136-145); TOTAL PROTEIN, SERUM 5.5 g/dL (6.4-8.2)
[2019-12-24 04:48] LABS: CREATININE SERUM 5.9 mg/dL (0.6-1.0)
[2019-12-24 04:56] VITALS: BP 143/61
== END 2019-12-24 04:56 | disposition short-term general hospital (02) ==
LOC: ED 02:49
PROVIDERS: Emergency Medicine
DX: S06.5X0A Traumatic subdural hemorrhage without loss of consciousness, initial encounter (principal); D64.9 Anemia, unspecified; S30.1XXA Contusion of abdominal wall, initial encounter; M25.512 Pain in left shoulder; I12.0 Hypertensive chronic kidney disease with stage 5 chronic kidney disease or end stage renal disease; N18.6 End stage renal disease; Z99.2 Dependence on renal dialysis; W06.XXXA Fall from bed, initial encounter; Y93.89 Activity, other specified; Y92.89 Other specified places as the place of occurrence of the external cause; Y99.8 Other external cause status
CPT/HCPCS: G0480; J1100; J1953; J3010; J7030; Q0092